=== PATIENT | male | born 1975 | race Caucasian/White ===

== ENCOUNTER 2024-06-16 15:19 | Inpatient (IN) | payer BC, MEDICAID, SELFPAY ==
[2024-06-16] VITALS (9 sets, daily range): BP systolic 114–140; BP diastolic 68–109; PULSE 75–101; RESP 16–20; TEMP 36.6; O2SAT 95–99; BMI 27.2
--- NOTE | 2024-06-16 15:39 | ED.C_ITS ---
HPI - Psych 2 General: Chief Complaint: Psychiatric Symptoms Stated Complaint: withdraw/MHE Time Seen by Provider: 06/16/24 15:20 Source: patient Mode of arrival: ambulatory Limitations: no limitations History of Present Illness: 48-year-old male has a history of drug a buse he states he recently got out of residential 2 months ago states he is relapsed on meth he had been admitted to [facility] today and got aggressive with the staff and combative. Patient here appears very paranoid has flight ideas states that he is scared that he is going to harm someone and wants to get help. He denies any SI. Associated symptoms: Deny depression Related Data Allergies Allergy/AdvReac Type Severity Reaction Status Date / Time No Known Allergies Allergy Verified 06/16/24 15:36 Review of Systems 2 Const: Denies: fever(s), chills, body aches or change in appetite ENMT: Denies: throat pain or dental pain Card: Denies: chest pain Resp: Denies: dyspnea GI: Denies: abdominal pain, nausea, vomiting or diarrhea Musc: Denies: neck pain or back pain Skin/Breast: Denies: rash Psych: Reports: anxiety, mood swings, irritability and paranoia; Denies: depression Physical Exam 2 Const: COMMON NORMALS: no acute distress, patient oriented x3 and healthy appearing HENMT: COMMON NORMALS: normocephalic and atraumatic HEAD & SCALP: n ormocephalic and atraumatic Neck/C-Spine: COMMON NORMALS: full ROM and supple Chest: COMMONS NORMALS: normal inspection of the chest Resp: COMMON NORMALS: normal respiratory effort Cardio: COMMON NORMALS: regular rate and regular rhythm RATE: regular rate RHYTHM: regular rhythm Extremity: COMMON NORMALS: normal to inspection and full ROM Neuro: COMMON NORMALS: patient oriented x3, moves all extremities and no focal motor deficits Psych: COMMON NORMALS: mental status grossly normal and cooperative MOOD & AFFECT: Yes elevated mood and Yes irritable THOUGHT PROCESS: Flight of ideas present Skin: COMMON NORMALS: no rashes or lesions noted and no wounds GENERAL SKIN EXAM: no rashes or lesions noted Course 2 Vital Signs: Vital signs: Vital Signs Temperature 97.9 F 06/16/24 15:20 Pulse Rate 83 06/16/24 18:00 Respiratory Rate 16 06/16/24 15:20 Blood Pressure 119/71 06/16/24 18:00 Pulse Oximetry 95 06/16/24 18:00 Oxygen Delivery Me thod Room Air 06/16/24 18:00 MDM - Psych Medical Decision Making Patient presents with acute psychosis along with substance abuse patient was placed on a 96-hour hold is medically cleared I spoke to psychiatrist will admit Lab Data I reviewed the patient's lab results. 06/16/24 15:38 06/16/24 15:38 Laboratory Results WBC 7.34 10^3/uL (3.29-11.43) 06/16/24 15:38 RBC 4.92 10^6/uL (3.85-5.65) 06/16/24 15:38 Hgb 15.60 g/dL (11.27-16.99) 06/16/24 15:38 Hct 44.8 % (37-53) 06/16/24 15:38 MCV 91.1 fl (82-101) 06/16/24 15:38 MCH 31.7 pg (27-33) 06/16/24 15:38 MCHC 34.8 g/dL (30-55) 06/16/24 15:38 RDW 11.9 % (12.1-15.1) L 06/16/24 15:38 Plt Count 214 10^3/cmm (157-399) 06/16/24 15:38 MPV 10.4 fL (7.4-10.4) 06/16/24 15:38 Neut % (Auto) 54.0 % 06/16/24 15:38 Lymph % (Auto) 32.6 % 06/16/24 15:38 Rice % (Auto) 10.6 % 06/16/24 15:38 Eos % (Auto) 2.3 % 06/16/24 15:38 Baso % (Auto) 0.4 % 06/16/24 15:38 Neut # (Auto) 3.96 10^3/uL (1.8-7.7) 06/16/24 15:38 Lymph # (Auto) 2.4 10^3/uL (0.8-4.8) 06/16/24 15:38 Rice # (Auto) 0.8 10^3/uL (0.2-0.9) 06/16/24 15:38 Eos # (Auto) 0.2 10^3/uL (0.0-0.8) 06/16/24 15:38 Baso # (Auto) 0.0 10^3/uL (0.0-0.1) 06/16/24 15:38 Nucleated RBC % (auto) 0 % 06/16/24 15:38 Nucleated RBCs # 0.0 /100WBC 06/16/24 15:38 Sodium 139 mmol/L (136-145) 06/16/24 15:38 Potassium 3.1 mmol/L (3.5-5.1) L 06/16/24 15:38 Chloride 101 mmol/L (98-107) 06/16/24 15:38 Carbon Dioxide 25 mmol/L (22-29) 06/16/24 15:38 Anion Gap 16.1 (5-19) 06/16/24 15:38 BUN 17 mg/dL (6-20) 06/16/24 15:38 Creatinine 0.8 mg/dL (0.7-1.2) 06/16/24 15:38 GFR Calculation 102.3 mL/min (90-130) 06/16/24 15:38 Glucose 88 mg/dL (65-115) 06/16/24 15:38 Calculated Osmolality 289 mOsm/kg (285-295) 06/16/24 15:38 Calcium 8.8 mg/dL (8.5-10.5) 06/16/24 15:38 Total Bilirubin 0.8 mg/dL (0.15-1.2) 06/16/24 15:38 AST 52 U/L (0-40) H 06/16/24 15:38 ALT 102 U/L (0-41) H 06/16/24 15:38 Alkaline Phosphatase 79 U/L (40-130) 06/16/24 15:38 Total Protein 7.2 g/dL (6.6-8.7) 06/16/24 15:38 Albumin 4.4 g/dL (3.5-5.2) 06/16/24 15:38 Globulin 2.8 g/dL (1.3-4.6) 06/16/24 15:38 Salicylates 0.6 mg/dL (3-10) L 06/16/24 15:38 Urine Opiates Screen Negative ng/mL (Negative) 06/16/24 16:53 Acetaminophen < 5.0 ug/mL (10-30) L 06/16/24 15:38 Ur Barbiturates Screen Negative ng/mL (Negative) 06/16/24 16:53 Ur Phencyclidine Scrn Negative ng/mL (Negative) 06/16/24 16:53 Ur Amphetamines Screen Positive ng/mL (Negative) H 06/16/24 16:53 U Benzodiazepines Scrn Negative ng/mL (Negative) 06/16/24 16:53 Urine Cocaine Screen Negative ng/mL (Negative) 06/16/24 16:53 U Marijuana (THC) Screen Positive ng/mL (Negative) H 06/16/24 16:53 Ethyl Alcohol < 10 mg/dL (0-10) 06/16/24 15:38 No radiology studies performed this visit Discharge Plan Discharge Patient Disposition: Admitted As Inpatient Admit Provider: Grzegorz Molina Clinical Impression: Acute psychosis, Drug-induced psychotic disorder Condition: Stable Coding Level of Care Code ED [employer] Tender for Naresh Leos
[2024-06-16] MEDS: LORazepam 2 mg/mL INJ 1 mL IM (15:45)
[2024-06-16 15:48] LABS: Basophils % 0.4 %; Eosinophils # 0.2 10^3/uL (0.0-0.8); Eosinophils % 2.3 %; Hematocrit 44.8 % (37-53); Lymphocytes # 2.4 10^3/uL (0.8-4.8); Lymphocytes % 32.6 %; Mean Corpuscular HGB Conc 34.8 g/dL (30-55); Mean Corpuscular Hemoglobin 31.7 pg (27-33); Mean Corpuscular Volume 91.1 fl (82-101); Mean Platelet Volume 10.4 fL (7.4-10.4); Monocytes # 0.8 10^3/uL (0.2-0.9); Monocytes % 10.6 %; Neutrophils # 3.96 10^3/uL (1.8-7.7); Nucleated Red Blood Cells % 0 %; Platelet Count 214 10^3/cmm (157-399); Red Blood Count 4.92 10^6/uL (3.85-5.65); Red Cell Distribution Width 11.9 % (12.1-15.1); White Blood Count 7.34 10^3/uL (3.29-11.43)
[2024-06-16] MEDS: haloperidol inj 5 mg/mL INJ 1 mL IM (15:58)
[2024-06-16 16:07] LABS: Alanine Aminotransferase 102 U/L (0-41); Albumin Level 4.4 g/dL (3.5-5.2); Alkaline Phosphatase 79 U/L (40-130); Anion Gap 16.1 (5-19); Aspartate Amino Transferase 52 U/L (0-40); Blood Urea Nitrogen 17 mg/dL (6-20); Calcium 8.8 mg/dL (8.5-10.5); Carbon Dioxide 25 mmol/L (22-29); Chloride 101 mmol/L (98-107); Creatinine Clr Calc Pharmacy 122.3019; Globulin 2.8 g/dL (1.3-4.6); Glomerular Filtration Rate 102.3 mL/min (90-130); Glucose 88 mg/dL (65-115); Osmolality Calculated 289 mOsm/kg (285-295); Potassium 3.1 mmol/L (3.5-5.1); Salicylate 0.6 mg/dL (3-10); Sodium 139 mmol/L (136-145); Total Bilirubin 0.8 mg/dL (0.15-1.2); Total Protein 7.2 g/dL (6.6-8.7)
[2024-06-16 16:10] LABS: Acetaminophen < 5.0 ug/mL (10-30); Alcohol Level < 10 mg/dL (0-10)
--- NOTE | 2024-06-16 16:10 | PC.NURSE ---
PT PACING AROUND ROOM. SECURITY AND SITTER OUTSIDE OF ROOM. PT C/O BEING UPSET OVER HIS BELONGINGS GETTING TAKEN AWAY AND WORRIED ABOUT HIS FAMILY. CALMS DOWN WITH INSTRUCTION.
--- NOTE | 2024-06-16 16:40 | PC.NURSE ---
96 hour hold rights read to patient. Kyaw from security present during reading of rights. Patient verbalized understandings and copy of rights given to patient.
[2024-06-16 17:22] LABS: Amphetamines Screen Urine Positive (Negative); Barbiturates Screen Urine Negative (Negative); Benzodiazepines Screen Urine Negative (Negative); Cocaine Screen Urine Negative (Negative); Opiate Screen Urine Negative (Negative); PCP Screen Urine Negative (Negative); THC Screen Urine Positive (Negative)
[2024-06-17 06:00] VITALS: BP 142/75; PULSE 105; RESP 18; TEMP 36.4; O2SAT 97
[2024-06-17] MEDS: nicotine 4 mg lozenge MUCOUS MEM ×2 (08:20→16:51)
--- NOTE | 2024-06-17 09:19 | PC.NURSE ---
This nurse called and notified Dr. Arriaza office that the pt was currently in the hospital and would not be attending his appointment today.
--- NOTE | 2024-06-17 09:29 | PC.NURSE ---
Morning assessment Patient calm during morning assessment. Patient has increased body movements. Patient said that he knows why he is here, that he relapsed on meth because he had already smoked weed and was going to [facility]. Patient said that he messed up and he learned from this. Patient denies suicidal thoughts, HI, AVH, depression, and anxiety. Patient said that he recently discharged from [facility], after an 11 year stent.
[2024-06-17 14:00] VITALS: BP 158/107; PULSE 76; RESP 17; TEMP 36.6; O2SAT 99
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
--- NOTE | 2024-06-17 16:26 | PC.NURSE ---
This nurse called pharmacy in [place], [place]. Staff are to fax patient medication list so we can restart meds.
[2024-06-17 17:29] VITALS: BP 129/88
[2024-06-17] MEDS: losartan 50 mg Tablet 100 MG PO (17:29)
[2024-06-17 17:45] VITALS: PULSE 79; RESP 16; O2SAT 94
[2024-06-17 19:37] VITALS: BP 156/89; PULSE 88; RESP 18; TEMP 36.7; O2SAT 98
[2024-06-17] MEDS: gabapentin 100 mg Capsule PO (21:21)
[2024-06-17] MEDS: trazodone 50 mg Tablet PO (21:21)
[2024-06-18 06:00] VITALS: BP 142/73; PULSE 86; RESP 16; TEMP 36.7; O2SAT 98
[2024-06-18] MEDS: nicotine 4 mg lozenge MUCOUS MEM ×4 (06:35→14:46)
--- NOTE | 2024-06-18 07:58 | PC.NURSE ---
PT PULLED THIS MANAGER TRAVEL ASIDE IN THE HALLWAY AND WAS TEARFUL. PT ENDORSES AUDITORY HALLUCINATIONS AND ASKED FOR MEDICATION TO HELP. PT WILL BE GIVEN HALDOL 5MG.
[2024-06-18 08:03] VITALS: BP 144/72
[2024-06-18] MEDS: haloperidol 5 mg Tablet PO (08:03)
[2024-06-18] MEDS: montelukast sodium 10 mg Tablet PO (08:03)
[2024-06-18] MEDS: losartan 50 mg Tablet 100 MG PO (08:03)
[2024-06-18] MEDS: atorvastatin 40 mg Tablet 20 MG PO (08:04)
[2024-06-18] MEDS: amlodipine 10 mg Tablet PO (08:04)
[2024-06-18] MEDS: gabapentin 100 mg Capsule PO ×3 (08:04→21:08)
[2024-06-18] MEDS: pantoprazole DR 40 mg Tablet PO (08:04)
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
[2024-06-18] MEDS: ziprasidone 20 mg/mL SDV IM (09:55)
[2024-06-18] MEDS: water for injection-sterile 10 ML 99999 ML (09:56)
[2024-06-18] MEDS: paliperidone ER 6 mg Tablet PO (09:56)
[2024-06-18 13:30] VITALS: PULSE 92; RESP 16; O2SAT 98
[2024-06-18] MEDS: albuterol 2.5 mg/3 mL Neb INHALATION (13:30)
[2024-06-18 14:00] VITALS: BP 174/98; PULSE 103; RESP 18; TEMP 36.6; O2SAT 99
[2024-06-18] MEDS: OLANZapine 5 mg ODT PO (17:39)
[2024-06-18 20:42] VITALS: BP 142/97; PULSE 95; RESP 17; TEMP 36.9; O2SAT 96
[2024-06-18] MEDS: trazodone 50 mg Tablet PO (21:07)
[2024-06-18] MEDS: quetiapine 25 mg Tablet 50 MG PO (21:07)
[2024-06-19 06:00] VITALS: BP 143/95; PULSE 109; RESP 17; TEMP 36.7; O2SAT 97
[2024-06-19] MEDS: nicotine 4 mg lozenge MUCOUS MEM ×6 (08:00→20:31)
[2024-06-19 08:55] VITALS: BP 143/95
[2024-06-19] MEDS: atorvastatin 40 mg Tablet 20 MG PO (08:55)
[2024-06-19] MEDS: montelukast sodium 10 mg Tablet PO (08:55)
[2024-06-19] MEDS: pantoprazole DR 40 mg Tablet PO (08:55)
[2024-06-19] MEDS: losartan 50 mg Tablet 100 MG PO (08:55)
[2024-06-19] MEDS: paliperidone ER 6 mg Tablet PO (08:55)
[2024-06-19] MEDS: gabapentin 100 mg Capsule PO ×3 (08:55→20:31)
[2024-06-19] MEDS: amlodipine 10 mg Tablet PO (08:56)
[2024-06-19] MEDS: OLANZapine 5 mg ODT PO ×2 (08:59→14:23)
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
[2024-06-19 10:00] VITALS: PULSE 93; RESP 18; O2SAT 96
[2024-06-19] MEDS: albuterol 2.5 mg/3 mL Neb INHALATION ×2 (11:23→21:57)
[2024-06-19] MEDS: hyDROXYzine 25 mg Capsule 50 MG PO ×2 (13:10→20:31)
[2024-06-19 14:00] VITALS: BP 125/80; PULSE 110; RESP 16; TEMP 36.7; O2SAT 98
[2024-06-19] MEDS: haloperidol 5 mg Tablet PO (17:51)
[2024-06-19 20:28] VITALS: BP 126/75; PULSE 102; RESP 18; TEMP 36.7; O2SAT 95
[2024-06-19] MEDS: quetiapine 25 mg Tablet 50 MG PO (20:31)
[2024-06-19] MEDS: trazodone 50 mg Tablet PO (20:31)
[2024-06-19 21:58] VITALS: PULSE 91; RESP 16; O2SAT 99
[2024-06-20 06:00] VITALS: BP 161/93; PULSE 106; RESP 17; TEMP 36.7; O2SAT 97
[2024-06-20] MEDS: budesonide 0.5 mg/2 mL Neb INHALATION (07:40)
[2024-06-20] MEDS: albuterol 2.5 mg/3 mL Neb INHALATION (07:40)
[2024-06-20 07:43] VITALS: PULSE 100; RESP 18; O2SAT 99
[2024-06-20] MEDS: amlodipine 10 mg Tablet PO (09:19)
[2024-06-20] MEDS: paliperidone ER 6 mg Tablet PO (09:19)
[2024-06-20] MEDS: atorvastatin 40 mg Tablet 20 MG PO (09:19)
[2024-06-20 09:20] VITALS: BP 161/93
[2024-06-20] MEDS: pantoprazole DR 40 mg Tablet PO (09:20)
[2024-06-20] MEDS: losartan 50 mg Tablet 100 MG PO (09:20)
[2024-06-20] MEDS: gabapentin 100 mg Capsule PO ×2 (09:20→14:18)
[2024-06-20] MEDS: montelukast sodium 10 mg Tablet PO (09:20)
[2024-06-20] MEDS: nicotine 4 mg lozenge MUCOUS MEM ×4 (09:20→16:17)
[2024-06-20] MEDS: acetaminophen 325 mg Tablet 650 MG PO ×2 (09:22→13:24)
[2024-06-20] MEDS: hyDROXYzine 25 mg Capsule 50 MG PO ×2 (10:20→16:17)
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
[2024-06-20] MEDS: OLANZapine 5 mg ODT PO (13:30)
[2024-06-20 14:00] VITALS: BP 156/96; PULSE 90; RESP 17; TEMP 36.7; O2SAT 98
[2024-06-20 21:36] VITALS: BP 130/88; PULSE 94; RESP 18; TEMP 36.8; O2SAT 96
[2024-06-21] MEDS: quetiapine 25 mg Tablet 50 MG PO (03:33)
[2024-06-21] MEDS: gabapentin 100 mg Capsule PO ×2 (03:33→07:43)
[2024-06-21 06:00] VITALS: BP 147/95; PULSE 111; RESP 17; O2SAT 99
[2024-06-21] MEDS: nicotine 4 mg lozenge MUCOUS MEM ×2 (06:49→09:11)
[2024-06-21] MEDS: acetaminophen 325 mg Tablet 650 MG PO (06:49)
[2024-06-21] MEDS: hyDROXYzine 25 mg Capsule 50 MG PO (07:42)
[2024-06-21 07:43] VITALS: BP 147/95
[2024-06-21] MEDS: montelukast sodium 10 mg Tablet PO (07:43)
[2024-06-21] MEDS: paliperidone ER 6 mg Tablet PO (07:43)
[2024-06-21] MEDS: losartan 50 mg Tablet 100 MG PO (07:43)
[2024-06-21] MEDS: pantoprazole DR 40 mg Tablet PO (07:43)
[2024-06-21] MEDS: atorvastatin 40 mg Tablet 20 MG PO (07:44)
[2024-06-21] MEDS: amlodipine 10 mg Tablet PO (07:44)
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
[2024-06-21 12:46] VITALS: BP 147/55; PULSE 111; RESP 17; O2SAT 98
== END 2024-06-21 13:27 | disposition home or self-care (01) | DRG 897 ==
LOC: ER 16:43 → NP 18:37
PROVIDERS: Admitting Provider Psychiatry & Neurology Psychiatry; Emergency Provider Emergency Medicine; Family Provider Family Medicine; PCP Family Medicine; Visit Provider Psychiatry & Neurology Psychiatry
DX: F15.259 Other stimulant dependence with stimulant-induced psychotic disorder, unspecified (principal); F17.210 Nicotine dependence, cigarettes, uncomplicated; Z81.8 Family history of other mental and behavioral disorders; J44.9 Chronic obstructive pulmonary disease, unspecified; Z87.820 Personal history of traumatic brain injury
CPT/HCPCS: 36415; 80053; 80306; 80307; 85025; 94640; 96372; 97150; 97165; 99285; J1630; J2060; J3486; J7613; J7626

== ENCOUNTER 2024-06-27 13:36 | Emergency (ER) | payer BC, MEDICAID, SELFPAY ==
--- NOTE | 2024-06-27 13:39 | ECG_ITS ---
[facility] 2024-[facility]27 Pat Name: Kalpesh Boggs Department: Room: Gender: Male Healthcare Administrator: : 1975 Requested By: Vanessa Altamirano Order Number: [id number] Pendleton MD: Jesus Castillo M.D. Measurements Intervals [place] Rate: 80 P: 32 MD: 172 QRS: 23 QRSD: 98 T: 36 QT: 360 QTc: 418 Interpretive Statements SINUS RHYTHM No previous ECG available for comparison Electronically Signed On 06-27-2024 22:28:44 [employer] by Jesus Castillo M.D. [email or web address]
[2024-06-27 13:40] VITALS: PULSE 81; RESP 18; TEMP 36.9; O2SAT 95
--- NOTE | 2024-06-27 13:41 | ED_ITS ---
HPI - Chest Pain 2 General: Chief Complaint: Chest Pain Stated Complaint: chest pain Time Seen by Provider: 06/27/24 13:36 History of Present Illness: 48-year-old man with a history of hypert ension, psychiatric issues and methamphetamine use in the past who presents emergency room with chest pain. He describes a left chest pain. This been going on for couple of days. Intermittent and brief in nature. Sharp pains. He says he finally got scared and decided to come to the emergency room. No cough. No fevers. No altered mental status. No nausea or vomiting. Related Data Home Medications Medication Instructions Recorded Confirmed diclofenac sodium 50 mg 50 mg PO BID PRN Pain 06/17/24 06/17/24 tablet,delayed release Previous Rx's Medication Instructions Recorded Ventolin HFA 90 mcg inhalation Q4H PRN 06/21/24 Shortness Of Breath Or Wheezing 30 days #1 unit amlodipine 10 mg tablet 10 mg PO DAILY 30 days #30 tabs 06/21/24 atorvastatin 20 mg tablet 20 mg PO DAILY 30 days #30 tabs 06/21/24 budesonide-formoterol HFA 160 2 puff inhalation BID 30 days #1 06/21/24 mcg-4.5 mcg/actuation aerosol unit inhaler (Symbicort) gabapentin 100 mg capsule 100 mg PO TID 30 days #90 caps 06/21/24 hydroxyzine pamoate 25 mg capsule 50 mg (2 x 25 mg) PO Q6H PRN 06/21/24 Anxiety 30 days #120 caps montelukast 10 mg tablet 10 mg PO DAILY 30 days #30 tabs 06/21/24 (Singulair) olanzapine 5 mg disintegrating 5 mg PO DAILY PRN 06/21/24 tablet Agitation/Psychosis 30 days #30 tabs olmesartan 40 mg tablet 40 mg PO DAILY 30 days #30 tabs 06/21/24 omeprazole 20 mg capsule,delayed 20 mg PO DAILY 30 days #30 caps 06/21/24 release paliperidone 6 mg tablet,extended 6 mg PO DAILY 30 days #30 tabs 06/21/24 release 24 hr quetiapine 25 mg tablet 50 mg (2 x 25 mg) PO BEDTIME 30 06/21/24 days #60 tabs Allergies Allergy/AdvReac Type Severity Reaction Status Date / Time No Known Allergies Allergy Verified 06/16/24 15:36 Review of Systems 2 Narrative: Constitutional symptoms: Negative except as documented in HPI. Skin symptoms: Negative except as documented in HPI. Eye symptoms: Negative except as documented in HPI. ENMT symptoms: Negative except as documented in HPI. Respiratory symptoms: Negative except as documented in HPI. Cardiovascular symptoms: Negative except as documented in HPI. Gastrointestinal symptoms: Negative except as documented in HPI. Genitourinary symptoms: Negative except as documented in HPI. Musculoskeletal symptoms: Negative except as documented in HPI. Neurologic symptoms: Negative except as documented in HPI. Psychiatric symptoms: Negative except as documented in HPI. Endocrine symptoms: Negative except as documented in HPI. PFSH ED 2 PFSH: Social History Smoking and tobacco/nicotine status: current every day tobacco/nicotine user Physical Exam 2 Narrative: EXAM NARRATIVE: General: Alert, no acute distress. Skin: Warm, dry. Head: Normocephalic, atraumatic. Neck: Supple, trachea midline. Eye: Extraocular movements are intact. Ears, nose, mouth and throat: mucosa moist. Cardiovascular: Regular, Normal peripheral perfusion. Respiratory: Lungs are clear to auscultation, respirations are non-labored, breath sounds are equal, Symmetrical chest wall expansion. Gastrointestinal: Soft, Nontender, Non distended Musculoskeletal: Normal ROM, no deformity. Neurological: Alert and oriented, No focal neurological deficit observed. Psychiatric: Cooperative, appropriate mood & affect. Course 2 Vital Signs: Vital signs: Vital Signs Temperature 98.4 F 06/27/24 13:40 Pulse Rate 81 06/27/24 13:40 Respiratory Rate 18 06/27/24 13:40 Blood Pressure 145/76 06/27/24 13:52 Pulse Oximetry 95 06/27/24 13:40 MDM - Chest Pain Medical Decision Making Differential diagnosis for patient with chest pain includes but is not limited to and based on the above HPI, review of systems and physical exam: Pneumonia. unstable angina. angina. Acute coronary syndrome / [place]. Pulmonary embolism. Costochondritis / musculoskeletal. Pleurisy. Pericarditis. Esophageal spasm. Pancreatis. Cholecystitis. Orders placed to evaluate differential diagnosis based on the above differential, HPI and physical exam EKG: Time 1339. Rate 80. Normal sinus rhythm, No ST-T changes, no ectopy, normal HI & QRS intervals, This was reviewed and interpreted by myself the ER physician at 1342. Chest x-ray: No acute process. No infiltrate. No pneumothorax. This was reviewed and interpreted by myself the emergency room physician. I also reviewed the radiology report. Lab Review: Laboratory results were reviewed and interpreted by myself the emergency room physician. Lab work is unremarkable. Mild leukocytosis. No renal failure. Troponin is negative. Pain has been going on for 2 days. I reviewed the patient's medical record. Reexamination: Patient remained stable. No increased work of breathing. No altered mental status. No focal motor deficits. Assessment and plan: Noncardiac chest pain - Discharged home - Discussed plan with patient. Answered any questions. - Evaluation and treatment of this problem were appropriate in the emergency setting. Lab Data 06/27/24 13:19 06/27/24 13:19 Laboratory Results WBC 12.30 10^3/uL (3.29-11.43) H 06/27/24 13:19 RBC 4.66 10^6/uL (3.85-5.65) 06/27/24 13:19 Hgb 15.00 g/dL (11.27-16.99) 06/27/24 13:19 Hct 41.5 % (37-53) 06/27/24 13:19 MCV 89.1 fl (82-101) 06/27/24 13:19 MCH 32.2 pg (27-33) 06/27/24 13:19 MCHC 36.1 g/dL (30-55) 06/27/24 13:19 RDW 11.8 % (12.1-15.1) L 06/27/24 13:19 Plt Count 326 10^3/cmm (157-399) 06/27/24 13:19 MPV 11.1 fL (7.4-10.4) H 06/27/24 13:19 Neut % (Auto) 63.9 % 06/27/24 13:19 Lymph % (Auto) 26.1 % 06/27/24 13:19 Crisp % (Auto) 7.4 % 06/27/24 13:19 Eos % (Auto) 1.6 % 06/27/24 13:19 Baso % (Auto) 0.4 % 06/27/24 13:19 Neut # (Auto) 7.86 10^3/uL (1.8-7.7) H 06/27/24 13:19 Lymph # (Auto) 3.2 10^3/uL (0.8-4.8) 06/27/24 13:19 Crisp # (Auto) 0.9 10^3/uL (0.2-0.9) 06/27/24 13:19 Eos # (Auto) 0.2 10^3/uL (0.0-0.8) 06/27/24 13:19 Baso # (Auto) 0.1 10^3/uL (0.0-0.1) 06/27/24 13:19 Nucleated RBC % (auto) 0 % 06/27/24 13:19 Nucleated RBCs # 0.0 /100WBC 06/27/24 13:19 Sodium 139 mmol/L (136-145) 06/27/24 13:19 Potassium 3.9 mmol/L (3.5-5.1) 06/27/24 13:19 Chloride 104 mmol/L (98-107) 06/27/24 13:19 Carbon Dioxide 23 mmol/L (22-29) 06/27/24 13:19 Anion Gap 15.9 (5-19) 06/27/24 13:19 BUN 21 mg/dL (6-20) H 06/27/24 13:19 Creatinine 0.7 mg/dL (0.7-1.2) 06/27/24 13:19 GFR Calculation 119.4 mL/min (90-130) 06/27/24 13:19 Glucose 133 mg/dL (65-115) H 06/27/24 13:19 Calculated Osmolality 293 mOsm/kg (285-295) 06/27/24 13:19 Calcium 8.6 mg/dL (8.5-10.5) 06/27/24 13:19 Total Bilirubin 0.3 mg/dL (0.15-1.2) 06/27/24 13:19 AST 194 U/L (0-40) H 06/27/24 13:19 ALT 436 U/L (0-41) H 06/27/24 13:19 Alkaline Phosphatase 105 U/L (40-130) 06/27/24 13:19 Troponin T Baseline < 6 ng/L (0-15) 06/27/24 13:19 Total Protein 6.7 g/dL (6.6-8.7) 06/27/24 13:19 Albumin 4.1 g/dL (3.5-5.2) 06/27/24 13:19 Globulin 2.6 g/dL (1.3-4.6) 06/27/24 13:19 All radiology interpretation(s) finalized by discharge Discharge Plan Discharge Patient Disposition: Home Clinical Impression: Non-cardiac chest pain Condition: Stable Prescriptions: No Action diclofenac sodium 50 mg Tablet,Delayed Release (Dr/Ec) 50 mg PO BID PRN (Reason: Pain) quetiapine 25 mg Tablet 50 mg PO BEDTIME 30 Days Qty: 60 1RF hydroxyzine pamoate 25 mg Capsule 50 mg PO Q6H PRN (Reason: Anxiety) 30 Days Qty: 120 1RF paliperidone 6 mg Tablet Extended Release 24 Hr 6 mg PO DAILY 30 Days Qty: 30 1RF olanzapine 5 mg Tablet,Disintegrating 5 mg PO DAILY PRN (Reason: Agitation/Psychosis) 30 Days Qty: 30 1RF atorvastatin 20 mg Tablet 20 mg PO DAILY 30 Days Qty: 30 1RF amlodipine 10 mg Tablet 10 mg PO DAILY 30 Days Qty: 30 1RF omeprazole 20 mg Capsule,Delayed Release(Dr/Ec) 20 mg PO DAILY 30 Days Qty: 30 1RF montelukast [Singulair] 10 mg Tablet 10 mg PO DAILY 30 Days Qty: 30 1RF gabapentin 100 mg Capsule 100 mg PO TID 30 Days Qty: 90 1RF olmesartan 40 mg Tablet 40 mg PO DAILY 30 Days Qty: 30 1RF budesonide-formoterol [Symbicort] 160-4.5 mcg/actuation Hfa Aerosol Inhaler 2 puff INHALATION BID 30 Days Qty: 1 1RF Ventolin HFA 90 mcg inhalation Q4H PRN (Reason: Shortness Of Breath Or Wheezing) 30 Days Qty: 1 1RF Discharge Orders: Discharge ED (Routine); Ordered 06/27/24 Ordered By: Vanessa Mendez Referrals: Ned Fatima DO [Primary Care Provider] - Tay Jarquin MD [Family Provider] - Discharge Diet: Usual diet Discharge Activity: Increase activity as tolerated Patient Instructions: Opioid Safety, Pain Management Activity Restrictions/Additional Instructions: You need to have your liver enzymes rechecked within the next week. If you are drinking alcohol or taking excessive amounts of Tylenol you need to stop that as well. Thank you for choosing [facility] for your healthcare needs today. Please realize this is an emergency room and that we are providing you with a medical screening exam and this may not be complete and all inclusive of all the testing and or work up that you may need to determine your ailment or severity of your illness. You have been screened and evaluated and felt safe for discharge. Health conditions do change or evolve sometimes and as such it is important that you follow up with your Primary Doctor to be re checked, 3-5 days is a general good time frame for follow up. 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
[2024-06-27 13:52] VITALS: BP 145/76
[2024-06-27 13:53] LABS: Basophils # 0.1 10^3/uL (0.0-0.1); Basophils % 0.4 %; Eosinophils # 0.2 10^3/uL (0.0-0.8); Eosinophils % 1.6 %; Hematocrit 41.5 % (37-53); Lymphocytes # 3.2 10^3/uL (0.8-4.8); Lymphocytes % 26.1 %; Mean Corpuscular HGB Conc 36.1 g/dL (30-55); Mean Corpuscular Hemoglobin 32.2 pg (27-33); Mean Corpuscular Volume 89.1 fl (82-101); Mean Platelet Volume 11.1 fL (7.4-10.4); Monocytes # 0.9 10^3/uL (0.2-0.9); Monocytes % 7.4 %; Neutrophils # 7.86 10^3/uL (1.8-7.7); Neutrophils % 63.9 %; Nucleated Red Blood Cells % 0 %; Platelet Count 326 10^3/cmm (157-399); Red Blood Count 4.66 10^6/uL (3.85-5.65); Red Cell Distribution Width 11.8 % (12.1-15.1)
[2024-06-27 14:17] LABS: Alanine Aminotransferase 436 U/L (0-41); Albumin Level 4.1 g/dL (3.5-5.2); Alkaline Phosphatase 105 U/L (40-130); Anion Gap 15.9 (5-19); Aspartate Amino Transferase 194 U/L (0-40); Blood Urea Nitrogen 21 mg/dL (6-20); Calcium 8.6 mg/dL (8.5-10.5); Carbon Dioxide 23 mmol/L (22-29); Chloride 104 mmol/L (98-107); Creatinine Clr Calc Pharmacy 138.1536; Globulin 2.6 g/dL (1.3-4.6); Glomerular Filtration Rate 119.4 mL/min (90-130); Glucose 133 mg/dL (65-115); Osmolality Calculated 293 mOsm/kg (285-295); Potassium 3.9 mmol/L (3.5-5.1); Sodium 139 mmol/L (136-145); Total Bilirubin 0.3 mg/dL (0.15-1.2); Total Protein 6.7 g/dL (6.6-8.7)
[2024-06-27 14:19] LABS: Troponin(5th) Baseline < 6 ng/L (0-15)
--- NOTE | 2024-06-27 14:43 | PC.PHAR ---
[facility] said they sent pt med list with special educator-can't locate here. They will be sending a copy of med list marielos.
[2024-06-27 15:00] VITALS: BP 136/83; PULSE 76; RESP 22; O2SAT 93
--- NOTE | 2024-06-27 15:14 | XRR_ITS ---
PROCEDURE INFORMATION: Exam: XR Chest Exam date and time: 06/27/2024 3:24 PM Age: 48 years old Clinical indication: Pain; Chest pressure; Additional info: Chest pain TECHNIQUE: Imaging protocol: Radiologic exam of the chest. Views: 1 view. COMPARISON: No relevant prior studies available. FINDINGS: Lungs: There is no consolidation. Pleural spaces: There is no pleural effusion or pneumothorax. Heart/Mediastinum: Cardiomediastinal contours are unremarkable. Bones/joints: Multiple healed right anterolateral rib fractures. There is mild degenerative disease at both shoulders. No acute osseous findings. XR/XR chest 1V portable [id number] IMPRESSION: No acute findings.
[2024-06-27 15:20] VITALS: BP 136/83; PULSE 76; O2SAT 93
== END 2024-06-27 16:27 | disposition home or self-care (01) ==
PROVIDERS: Emergency Provider Emergency Medicine; Family Provider Family Medicine; PCP Family Medicine
DX: R07.89 Other chest pain (principal); Z72.0 Tobacco use; I10 Essential (primary) hypertension
CPT/HCPCS: 71045; 80053; 84484; 85025; 93005; 99285

== ENCOUNTER 2024-09-10 10:07 | Outpatient (CLI) | payer MEDICAID, SELFPAY ==
--- NOTE | 2024-09-10 10:40 | XR_ITS ---
WS: [email or web address] Cervical spine, 3 views, 09/10/2024 Clinical Data: PAIN CHRONIC Comparison: None. Findings: No compression fractures are seen. There is degenerative disc narrowing at C4-C5, C5-C6 and C6-C7. There is spurring C5-C7. There is no prevertebral soft tissue swelling. The odontoid is unremarkable. The soft tissues of the neck and the lung apices are normal. XR/XR cervical spine 3V* [id number] Impression: Degenerative disc narrowing C4-C7 with osteoarthritis.
--- NOTE | 2024-09-10 10:40 | XR_ITS ---
WS: [email or web address] Lumbar spine, AP and lateral views, 09/10/2024 Clinical Data: PAIN CHRONIC Comparison: None. Findings: There is a slight wedge compression of L1 of indeterminate age. There is spurring of all the lumbar vertebral bodies. There is osteoarthritic spurring of the lower thoracic vertebral bodies. There is degenerative disc narrowing at L5-S1. Transverse processes and SI joints are normal. XR/XR lumbar spine 2-3V* [id number] Impression: 1. Wedge compression of L1 of indeterminate age. 2. Osteoarthritis of all the lumbar vertebral bodies. 3. Degenerative disc narrowing at L5-S1.
--- NOTE | 2024-09-10 10:40 | XR_ITS ---
WS: [email or web address] Sacrum and coccyx, 3 views, 09/10/2024 Clinical Data: PAIN CHRONIC Comparison: None. Findings: No fractures or dislocations are seen. The SI joints and pubic symphysis are unremarkable. No bone destruction or erosion is seen. The hips and sacrum are not remarkable. There is osteoarthritic spurring of the L4-S1 levels. XR/XR sacrum coccyx min 2V [id number] Impression: Negative sacrum and coccyx.
== END 2024-09-10 10:08 | disposition home or self-care (01) ==
LOC: RAD 10:35
PROVIDERS: Visit Provider Internal Medicine
DX: R07.89 Other chest pain (principal); G89.29 Other chronic pain; M25.78 Osteophyte, vertebrae; R93.7 Abnormal findings on diagnostic imaging of other parts of musculoskeletal system; M47.896 Other spondylosis, lumbar region; M47.897 Other spondylosis, lumbosacral region; M47.892 Other spondylosis, cervical region
CPT/HCPCS: 72040; 72100; 72220

== ENCOUNTER 2024-10-04 19:50 | Emergency (ER) | payer MEDICAID, SELFPAY ==
--- NOTE | 2024-10-04 19:52 | XRR_ITS ---
PROCEDURE INFORMATION: Exam: XR Chest Exam date and time: 10/04/2024 8:00 PM Age: 49 years old Clinical indication: Other: HTN TECHNIQUE: Imaging protocol: Radiologic exam of the chest. Views: 1 view. COMPARISON: CR (CHEST, ) 06/27/2024 3:24 PM FINDINGS: Tubes, catheters and devices: None. Lungs: Linear density identified within left lower lung. Possible atelectasis or scarring. The lungs appear otherwise clear. Pleural spaces: No pleural effusion. No pneumothorax. Heart/Mediastinum: Mediastinum and ti appear unremarkable. Bones/joints: Old healed bilateral rib fractures are demonstrated. Mild to moderate generalized bony degenerative changes. XR/XR chest 1V portable [id number] IMPRESSION: 1. Linear left lower chest pulmonary atelectasis or scarring. 2. Chronic findings.
--- NOTE | 2024-10-04 19:53 | ECG_ITS ---
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 Measurements Intervals [place] Rate: 71 P: 24 ME: 172 QRS: 15 QRSD: 98 T: 52 QT: 377 QTc: 410 Interpretive Statements SINUS RHYTHM Compared to ECG 06/27/2024 13:39:28 No significant changes Electronically Signed On 10-04-2024 20:51:48 CDT by Jesus Castillo M.D. [email or web address]
[2024-10-04 19:54] VITALS: BP 136/82; PULSE 74; RESP 18; TEMP 36.8; O2SAT 98
[2024-10-04 20:21] LABS: Basophils # 0.1 10^3/uL (0.0-0.1); Basophils % 0.5 %; Eosinophils # 0.3 10^3/uL (0.0-0.8); Eosinophils % 2.7 %; Hematocrit 44.9 % (37-53); Lymphocytes # 4.5 10^3/uL (0.8-4.8); Mean Corpuscular HGB Conc 35.4 g/dL (30-55); Mean Corpuscular Hemoglobin 31.4 pg (27-33); Mean Corpuscular Volume 88.6 fl (82-101); Mean Platelet Volume 10.1 fL (7.4-10.4); Monocytes # 0.9 10^3/uL (0.2-0.9); Monocytes % 7.1 %; Neutrophils # 6.63 10^3/uL (1.8-7.7); Neutrophils % 53.1 %; Nucleated Red Blood Cells % 0 %; Platelet Count 233 10^3/cmm (157-399); Red Blood Count 5.07 10^6/uL (3.85-5.65); Red Cell Distribution Width 11.9 % (12.1-15.1); White Blood Count 12.48 10^3/uL (3.29-11.43)
[2024-10-04 20:50] LABS: Alanine Aminotransferase 69 U/L (0-41); Albumin Level 4.3 g/dL (3.5-5.2); Alkaline Phosphatase 91 U/L (40-130); Blood Urea Nitrogen 15 mg/dL (6-20); Carbon Dioxide 21 mmol/L (22-29); Chloride 101 mmol/L (98-107); Creatinine Clr Calc Pharmacy 151.0358; Globulin 3.2 g/dL (1.3-4.6); Glomerular Filtration Rate 118.9 mL/min (90-130); Glucose 128 mg/dL (65-115); NT Pro B Type Natriuretic Pept 76 pg/mL (0-125); Osmolality Calculated 280 mOsm/kg (285-295); Sodium 134 mmol/L (136-145); Total Bilirubin 0.5 mg/dL (0.15-1.2); Total Protein 7.5 g/dL (6.6-8.7)
[2024-10-04 20:53] LABS: Anion Gap 15.6 (5-19); Aspartate Amino Transferase 34 U/L (0-40); Potassium 3.6 mmol/L (3.5-5.1)
--- NOTE | 2024-10-04 20:56 | W.ED.SOB ---
HPI - SOB/Dyspnea General: Chief Complaint: Shortness of Breath/Dyspnea Stated Complaint: Possible Water Retention Time Seen by Provider: 10/04/24 20:52 History of Present Illness: HPI Narrative: 49-year-old man who presents emergency room with increased shortness of breath for several weeks now. He also has noticed some weight gain and possible fluid in his legs. He does have some mild pedal edema. No chest pain. He says the main reason he came in today was because of the swelling in his legs. He does have an appointment with a patrol mother for cardiac workup coming up soon. Related Data Home Medications ?Medication ?Instructions ?Recorded ?Confirmed albuterol sulfate 90 mcg/actuation 2 inh inhalation DAILY 09/22/24 09/22/24 aerosol inhaler (Ventolin HFA) bupropion HCl 300 mg 24 hr tablet, 300 mg PO QAM 09/22/24 09/22/24 extended release (Wellbutrin XL) glecaprevir 100 mg-pibrentasvir 40 2 tab PO DAILY 09/22/24 09/22/24 mg tablet (Mavyret) hydroxyzine pamoate 50 mg capsule 50 mg PO TID PRN 09/22/24 09/22/24 metoprolol succinate 100 mg 100 mg PO DAILY 09/22/24 09/22/24 tablet,extended release 24 hr olanzapine 20 mg tablet (Zyprexa) 20 mg PO DAILY 09/22/24 09/22/24 quetiapine 100 mg tablet (Seroquel) 100 mg PO DAILY 09/22/24 09/22/24 tamsulosin 0.4 mg capsule (Flomax) 0.4 mg PO DAILY 09/22/24 09/22/24 Previous Rx's ?Medication ?Instructions ?Recorded Ventolin HFA 90 mcg inhalation Q4H PRN 06/21/24 Shortness Of Breath Or Wheezing 30 days #1 unit amlodipine 10 mg tablet 10 mg PO DAILY 30 days #30 tabs 06/21/24 olmesartan 40 mg tablet 40 mg PO DAILY 30 days #30 tabs 06/21/24 omeprazole 20 mg capsule,delayed 20 mg PO DAILY 30 days #30 caps 06/21/24 release paliperidone 6 mg tablet,extended 6 mg PO DAILY 30 days #30 tabs 06/21/24 release 24 hr nicotine 21 mg/24 hr daily 1 patch transdermal DAILY #28 ea 02/04/25 transdermal patch albuterol sulfate 90 mcg/actuation 2 inh inhalation Q4H PRN shortness 10/04/24 aerosol inhaler of breath or wheezing #6.7 grams azithromycin 250 mg tablet See Rx Instructions PO .COMPLEX #6 10/04/24 (Zithromax Z-Yayo) tabs dexamethasone 6 mg tablet 6 mg PO DAILY 5 days #5 tabs 10/04/24 furosemide 40 mg tablet (Lasix) 40 mg PO QAM 5 days #5 tabs 10/04/24 Allergies Allergy/AdvReac Type Severity Reaction Status Date / Time No Known Allergies Allergy Verified 10/04/24 20:02 Review of Systems Narrative: Constitutional symptoms: Negative except as documented in HPI. Skin symptoms: Negative except as documented in HPI. Eye symptoms: Negative except as documented in HPI. ENMT symptoms: Negative except as documented in HPI. Respiratory symptoms: Negative except as documented in HPI. Cardiovascular symptoms: Negative except as documented in HPI. Gastrointestinal symptoms: Negative except as documented in HPI. Genitourinary symptoms: Negative except as documented in HPI. Musculoskeletal symptoms: Negative except as documented in HPI. Neurologic symptoms: Negative except as documented in HPI. Psychiatric symptoms: Negative except as documented in HPI. Endocrine symptoms: Negative except as documented in HPI. PFSH ED PFSH: Medical History (Updated 10/04/24 @ 21:02 by Vanessa Mendez MD) Mood disorder Cannabis dependence, uncomplicated Nicotine dependence, cigarettes, uncomplicated Chronic post-traumatic stress disorder (PTSD) Psychiatric care Social History Smoking and tobacco/nicotine status: never used tobacco/nicotine Physical Exam Narrative: EXAM NARRATIVE: General: Alert, no acute distress. Skin: Warm, dry. Head: Normocephalic, atraumatic. Neck: Supple, trachea midline. Eye: Extraocular movements are intact. Ears, nose, mouth and throat: mucosa moist. Cardiovascular: Regular, Normal peripheral perfusion. Patient does have some mild pedal edema Respiratory: Lungs are clear to auscultation, respirations are non-labored, breath sounds are equal, Symmetrical chest wall expansion. Gastrointestinal: Soft, Nontender, Non distended Musculoskeletal: Normal ROM, no deformity. Neurological: Alert and oriented, No focal neurological deficit observed. Psychiatric: Cooperative, appropriate mood & affect. Course Vital Signs: Vital signs: Vital Signs Temperature 98.3 F 10/04/24 19:54 Pulse Rate 74 10/04/24 19:54 Respiratory Rate 18 10/04/24 19:54 Blood Pressure 136/82 10/04/24 19:54 Pulse Oximetry 98 10/04/24 19:54 Oxygen Delivery Me thod Room Air 10/04/24 19:54 MDM - SOB/Dyspnea Medical Decision Making Differential diagnosis for patient with shortness of breath includes but is not limited to and based on the above HPI, review of systems and physical exam: Pneumonia. Bronchitis. Asthma or COPD with acute exacerbation. Acute coronary syndrome / [place]. Pulmonary embolism. Anxiety. Congestive heart failure. Viral infections including influenza and Covid-19. Atrial fibrillation. Anxiety. Pleural effusion. Pneumothorax. Orders placed to evaluate differential diagnosis based on the above differential, HPI and physical exam Chest x-ray: Some mild scarring versus atelectasis. No acute process. No infiltrate. No pneumothorax. This was reviewed and interpreted by myself the emergency room physician. I also reviewed the radiology report. EKG: Time 1958. Rate 71 normal sinus rhythm, No ST-T changes, no ectopy, normal [place] & QRS intervals, This was reviewed and interpreted by myself the ER physician at 2004 Lab Review: Laboratory results were reviewed and interpreted by myself the emergency room physician. Lab work unremarkable. Mild leukocytosis. No anemia. No renal failure. proBNP is not elevated. I reviewed the patient's medical record. Reexamination: Patient remained stable. No increased work of breathing. No altered mental status. No focal motor deficits. Assessment and plan: Asthma exacerbation Mild edema ? No signs of heart failure. He does have some wheeze and cough he says and feels like his asthma is acting up. He is currently in a rehab locally. - Discharged home - Discussed plan with patient. Answered any questions. - Evaluation and treatment of this problem were appropriate in the emergency setting. Lab Data 10/04/24 20:10 10/04/24 20:10 Labs/Radiology: Radiology Impressions Chest X-Ray 10/04/24 19:52 IMPRESSION: 1. Linear left lower chest pulmonary atelectasis or scarring. 2. Chronic findings. Laboratory Results WBC 12.48 10^3/uL (3.29-11.43) H 10/04/24 20:10 RBC 5.07 10^6/uL (3.85-5.65) 10/04/24 20:10 Hgb 15.90 g/dL (11.27-16.99) 10/04/24 20:10 Hct 44.9 % (37-53) 10/04/24 20:10 MCV 88.6 fl (82-101) 10/04/24 20:10 MCH 31.4 pg (27-33) 10/04/24 20:10 MCHC 35.4 g/dL (30-55) 10/04/24 20:10 RDW 11.9 % (12.1-15.1) L 10/04/24 20:10 Plt Count 233 10^3/cmm (157-399) 10/04/24 20:10 MPV 10.1 fL (7.4-10.4) 10/04/24 20:10 Neut % (Auto) 53.1 % 10/04/24 20:10 Lymph % (Auto) 36.0 % 10/04/24 20:10 [place] % (Auto) 7.1 % 10/04/24 20:10 Eos % (Auto) 2.7 % 10/04/24 20:10 Baso % (Auto) 0.5 % 10/04/24 20:10 Neut # (Auto) 6.63 10^3/uL (1.8-7.7) 10/04/24 20:10 Lymph # (Auto) 4.5 10^3/uL (0.8-4.8) 10/04/24 20:10 [place] # (Auto) 0.9 10^3/uL (0.2-0.9) 10/04/24 20:10 Eos # (Auto) 0.3 10^3/uL (0.0-0.8) 10/04/24 20:10 Baso # (Auto) 0.1 10^3/uL (0.0-0.1) 10/04/24 20:10 Nucleated RBC % (auto) 0 % 10/04/24 20:10 Nucleated RBCs # 0.0 /100WBC 10/04/24 20:10 Sodium 134 mmol/L (136-145) L 10/04/24 20:10 Potassium 3.6 mmol/L (3.5-5.1) 10/04/24 20:10 Chloride 101 mmol/L (98-107) 10/04/24 20:10 Carbon Dioxide 21 mmol/L (22-29) L 10/04/24 20:10 Anion Gap 15.6 (5-19) 10/04/24 20:10 BUN 15 mg/dL (6-20) 10/04/24 20:10 Creatinine 0.7 mg/dL (0.7-1.2) 10/04/24 20:10 GFR Calculation 118.9 mL/min (90-130) 10/04/24 20:10 Glucose 128 mg/dL (65-115) H 10/04/24 20:10 Calculated Osmolality 280 mOsm/kg (285-295) L 10/04/24 20:10 Calcium 9.0 mg/dL (8.5-10.5) 10/04/24 20:10 Total Bilirubin 0.5 mg/dL (0.15-1.2) 10/04/24 20:10 AST 34 U/L (0-40) 10/04/24 20:10 ALT 69 U/L (0-41) H 10/04/24 20:10 Alkaline Phosphatase 91 U/L (40-130) 10/04/24 20:10 NT-Pro-B Natriuret Pep 76 pg/mL (0-125) 10/04/24 20:10 Total Protein 7.5 g/dL (6.6-8.7) 10/04/24 20:10 Albumin 4.3 g/dL (3.5-5.2) 10/04/24 20:10 Globulin 3.2 g/dL (1.3-4.6) 10/04/24 20:10 All radiology interpretation(s) finalized by discharge Discharge Plan Discharge Patient Disposition: Home Clinical Impression: Asthma with exacerbation, Pedal edema Condition: Stable Prescriptions: New furosemide [Lasix] 40 mg tablet 40 mg PO QAM 5 Days Qty: 5 0RF azithromycin [Zithromax Z-Yayo] 250 mg tablet See Rx Instructions .ROUTE .COMPLEX Qty: 6 0RF Rx Instructions: For 250 mg dose pack: take 500 mg today (day 1), then 250 mg for 4 days (days 2-5) dexamethasone 6 mg tablet 6 mg PO DAILY 5 Days Qty: 5 0RF albuterol sulfate 90 mcg/actuation HFA aerosol inhaler 2 inh inhalation Q4H PRN (Reason: shortness of breath or wheezing) Qty: 6.7 0RF Rx Instructions: Please provide patient with a spacer No Action nicotine 21 mg/24 hr patch 24 hour 1 patch transdermal DAILY Qty: 28 1RF hydroxyzine pamoate 50 mg capsule 50 mg PO TID PRN quetiapine [Seroquel] 100 mg tablet 100 mg PO DAILY tamsulosin [Flomax] 0.4 mg capsule 0.4 mg PO DAILY metoprolol succinate 100 mg tablet extended release 24 hr 100 mg PO DAILY albuterol sulfate [Ventolin HFA] 90 mcg/actuation HFA aerosol inhaler 2 inh inhalation DAILY olanzapine [Zyprexa] 20 mg tablet 20 mg PO DAILY Mavyret 100-40 mg tablet 2 tab PO DAILY Rx Instructions: must administer with a meal/food bupropion HCl [Wellbutrin XL] 300 mg tablet extended release 24 hr 300 mg PO QAM paliperidone 6 mg Tablet Extended Release 24 Hr 6 mg PO DAILY 30 Days Qty: 30 1RF amlodipine 10 mg Tablet 10 mg PO DAILY 30 Days Qty: 30 1RF omeprazole 20 mg Capsule,Delayed Release(Dr/Ec) 20 mg PO DAILY 30 Days Qty: 30 1RF olmesartan 40 mg Tablet 40 mg PO DAILY 30 Days Qty: 30 1RF Ventolin HFA 90 mcg inhalation Q4H PRN (Reason: Shortness Of Breath Or Wheezing) 30 Days Qty: 1 1RF Discharge Orders: Discharge ED (Routine); Ordered 10/04/24 Ordered By: Vanessa Mendez Referrals: Michael Mayer MD [Primary Care Provider] - Discharge Diet: Usual diet Discharge Activity: Increase activity as tolerated Patient Instructions: Asthma Exacerbation - Adult, How to Use a Metered-Dose Inhaler and a Spacer (ED), Opioid Safety, Pain Management Activity Restrictions/Additional Instructions: Thank you for choosing [facility] for your healthcare needs today. Please realize this is an emergency room and that we are providing you with a medical screening exam and this may not be complete and all inclusive of all the testing and or work up that you may need to determine your ailment or severity of your illness. You have been screened and evaluated and felt safe for discharge. Health conditions do change or evolve sometimes and as such it is important that you follow up with your Primary Doctor to be re checked, 3-5 days is a general good time frame for follow up. You are always welcome to return to the ED for re assessment if your symptoms are worsening or you have new concerns Print Language: [place] Coding Level of Care Code ED Money Manager for Naresh Leos
[2024-10-04 21:32] VITALS: BP 153/103; PULSE 71; RESP 16; O2SAT 97
[2024-10-04 23:36] VITALS: BP 153/103; PULSE 71; O2SAT 97
== END 2024-10-04 21:36 | disposition home or self-care (01) ==
PROVIDERS: Emergency Medicine; Emergency Provider Emergency Medicine; PCP Internal Medicine
DX: J45.901 Unspecified asthma with (acute) exacerbation (principal); R60.9 Edema, unspecified
CPT/HCPCS: 36415; 71045; 80053; 83880; 85025; 93005; 99285

== ENCOUNTER → 2024-10-05 09:05 | Outpatient (BNVA) | payer OTHER, SELFPAY | PROVIDERS: PCP Internal Medicine; Visit Provider Nurse Practitioner | DX: F43.12 Post-traumatic stress disorder, chronic (principal); Z79.899 Other long term (current) drug therapy | CPT/HCPCS: 80061; 83036 ==

== ENCOUNTER → 2025-02-23 08:30 | Outpatient (BNVA) | payer MEDICAID, SELFPAY ==
[2024-12-03 08:28] VITALS: BMI 33.9
== END ==
PROVIDERS: PCP Family Medicine; Visit Provider Family Medicine
DX: Z51.81 Encounter for therapeutic drug level monitoring (principal); E55.9 Vitamin D deficiency, unspecified; R73.03 Prediabetes
CPT/HCPCS: 80053; 82306; 83036; 85025

== ENCOUNTER 2025-03-07 20:00 | Outpatient (CLI) | payer MEDICAID, SELFPAY ==
[2024-10-06 10:23] VITALS: BMI 33.9
[2024-12-03 08:28] VITALS: BMI 33.9
== END 2025-03-07 20:01 | disposition home or self-care (01) ==
LOC: SLEEP 03-08 13:18
PROVIDERS: PCP Family Medicine; Referring Provider Family Medicine; Visit Provider Internal Medicine Pulmonary Disease
DX: G47.10 Hypersomnia, unspecified (principal); G47.33 Obstructive sleep apnea (adult) (pediatric); G47.61 Periodic limb movement disorder
CPT/HCPCS: 95810